=== PATIENT | female | born 1965 | race Caucasian/White ===

== ENCOUNTER 2016-06-11 07:45 | Day surgery (SDC) | payer OTHER ==
[~2016-06-11] VITALS: Ht 175.3 cm; Wt 93.0 kg
[~2016-06-11 07:45] MED LIST: BIOTIN 5000MCG PO; CYANOCOBAL1000 MCG/2 IM; CYMBALTA60 MG PO; CYTOMEL25 MCG PO; DESYREL100 MG PO; LANTUS 10100 UNITS/ SC; LEVOXYL88 MCG PO; LYRICA150 MG PO; MICROZIDE12.5 M1 PO; PRAVACHOL40 MG PO; PRINIVIL10 MG PO; PROTONIX40 MG PO; ULTRAM ER100 MG PO; VITAMIN D35000 UNIT PO; XANAX0.5 MG PO; ZANTAC300 MG PO
[2016-06-11 08:25] LABS: POINT-OF-CARE METER ID UU13113696
== END 2016-06-11 12:10 | disposition home or self-care (01) ==
LOC: CATH 07:45
PROVIDERS: Surgery
DX: T82.858A Stenosis of other vascular prosthetic devices, implants and grafts, initial encounter (principal); I12.0 Hypertensive chronic kidney disease with stage 5 chronic kidney disease or end stage renal disease; E11.22 Type 2 diabetes mellitus with diabetic chronic kidney disease; N18.6 End stage renal disease; Z85.528 Personal history of other malignant neoplasm of kidney; E78.5 Hyperlipidemia, unspecified; E07.9 Disorder of thyroid, unspecified; Z98.84 Bariatric surgery status; Z79.4 Long term (current) use of insulin; Y83.2 Surgical operation with anastomosis, bypass or graft as the cause of abnormal reaction of the patient, or of later complication, without mention of misadventure at the time of the procedure
CPT/HCPCS: 82948; C1725; C1769; C1894; J1644; J2250; J3010

== ENCOUNTER 2017-12-11 06:00 | Day surgery (SDC) | payer OTHER ==
[~2017-12-11] VITALS: Ht 175.3 cm; Wt 85.0 kg
== END 2017-12-11 10:30 | disposition home or self-care (01) ==
LOC: CATH 06:00
PROVIDERS: Surgery
DX: T82.868A Thrombosis due to vascular prosthetic devices, implants and grafts, initial encounter (principal); T82.858A Stenosis of other vascular prosthetic devices, implants and grafts, initial encounter; I12.9 Hypertensive chronic kidney disease with stage 1 through stage 4 chronic kidney disease, or unspecified chronic kidney disease; E11.22 Type 2 diabetes mellitus with diabetic chronic kidney disease; N18.6 End stage renal disease; Z99.2 Dependence on renal dialysis; E78.5 Hyperlipidemia, unspecified; M19.90 Unspecified osteoarthritis, unspecified site; E07.9 Disorder of thyroid, unspecified; Z87.891 Personal history of nicotine dependence; Z90.49 Acquired absence of other specified parts of digestive tract; Z90.710 Acquired absence of both cervix and uterus; Z82.49 Family history of ischemic heart disease and other diseases of the circulatory system; Z82.3 Family history of stroke; Z80.3 Family history of malignant neoplasm of breast; Y83.2 Surgical operation with anastomosis, bypass or graft as the cause of abnormal reaction of the patient, or of later complication, without mention of misadventure at the time of the procedure
CPT/HCPCS: 82948; 87070; 87075; 87205; 87641; 88304; C1725; C1757; C1769; C1887; C1894; J0690; J1644; J2250; J3010; S0020